=== PATIENT | male | born 1995 | race Caucasian/White ===

== ENCOUNTER 2023-04-09 12:22 | Emergency (ER) | payer OTHER ==
[~2023-04-09] VITALS: Ht 175.3 cm; Wt 94.5 kg
[2023-04-09] MEDS ORDERED: HYDROCODONE/ACETAMINOPHEN 5-325 MG TABLET PO ONE (13:45)
[2023-04-09] MEDS ORDERED: BACITRACIN 0.9 GM PACKET OINTMENT TP ONE (13:45)
[2023-04-09] MEDS ORDERED: KETOROLAC TROMETHAMINE 60 MG/2 ML VIAL IM ONE (13:45)
[2023-04-09] MEDS ORDERED: PERTUSS(ACELL),DIPH,TET VAC/PF 0.5 ML SYRINGE IM. ONE (13:45)
[2023-04-09] MEDS ORDERED: IBUP-1554 PO (13:55)
[2023-04-09] MEDS ORDERED: ACET-2080 PO (13:55)
[2023-04-09 15:02] VITALS: BP 138/85
== END 2023-04-09 15:11 | disposition home or self-care (01) ==
LOC: EMS 12:23
DX: S67.194A Crushing injury of right ring finger, initial encounter (principal); S61.304A Unspecified open wound of right ring finger with damage to nail, initial encounter; S67.190A Crushing injury of right index finger, initial encounter; W31.89XA Contact with other specified machinery, initial encounter; Y93.89 Activity, other specified; Y92.89 Other specified places as the place of occurrence of the external cause; Y99.0 Civilian activity done for income or pay
CPT/HCPCS: 99284; 73130; 90715; 90471; 96372; J1885